=== PATIENT | female | born 1995 | race Caucasian/White ===

== ENCOUNTER → 2021-08-27 | Outpatient (CLI) | payer OTHER ==
[~2021-08-27] MED LIST: COLACE 100MG C100 MG PO; IBUPROFEN600 MG PO; NORCO 5-325 TA1 EACH PO
== END ==
LOC: KOH-I 10:30
DX: J32.9 Chronic sinusitis, unspecified (principal); R51.9 Headache, unspecified; J34.1 Cyst and mucocele of nose and nasal sinus
CPT/HCPCS: 70486

== ENCOUNTER → 2021-11-02 | Day surgery (SDC) | payer OTHER ==
[~2021-11-02] MED LIST changes: +CEPHALEXIN500 M1 PO; +HYDROCODON-ACE1 EAC4 PO; +PRENATAL + DHA1 EAC1 PO; +ZOLOFT50 MG PO
== END | disposition home or self-care (01) ==
LOC: OR 07:05
DX: J32.9 Chronic sinusitis, unspecified (principal); J34.3 Hypertrophy of nasal turbinates; J34.2 Deviated nasal septum; J33.8 Other polyp of sinus; F17.210 Nicotine dependence, cigarettes, uncomplicated; R09.82 Postnasal drip; R09.81 Nasal congestion; R51.9 Headache, unspecified; Z20.822 Contact with and (suspected) exposure to COVID-19
CPT/HCPCS: 84703; C1726; J0690; J1100; J1885; J2001; J2250; J2405; J2704; J2710; J3010; J7030; J7120